=== PATIENT | female | born 1985 | race African-American/Black ===

== ENCOUNTER 2020-10-30 23:31 | Inpatient (IN) | payer OTHER ==
[2020-10-31 01:20] VITALS: BMI 25.4
[2020-10-31] MEDS ORDERED: MAG HYDROX/AL HYDROX/SIMETH 30 ML UNIT-DOSE CUP PO PRN (02:02)
[2020-10-31] MEDS ORDERED: chlordiazePOXIDE HCL 25 MG CAPSULE PO PRN (02:02)
[2020-10-31] MEDS ORDERED: NICOTINE POLACRILEX 4 MG GUM BUC PRN (02:02)
[2020-10-31] MEDS ORDERED: MAGNESIUM CITRATE 300 ML BOTTLE PO PRN (02:02)
[2020-10-31] MEDS ORDERED: ONDANSETRON *ODT* 4 MG TABLET SL PRN (02:02)
[2020-10-31] MEDS ORDERED: BISMUTH SUBSALICYLATE 524 MG/30 ML UD PO PRN (02:02)
[2020-10-31] MEDS ORDERED: MAGNESIUM HYDROX 2400MG/30ML ORAL SUSPENSION 30 ML CUP PO PRN (02:02)
[2020-10-31] MEDS ORDERED: ACETAMINOPHEN 325 MG TABLET (FP) PO PRN ×2 (02:02)
[2020-10-31] MEDS ORDERED: MENTHOL/PHENOL 1 EACH UD MM PRN (02:02)
[2020-10-31] MEDS: hydrOXYzine PAMOATE 25 MG CAPSULE (FP) PO SCH ×2 (06:38→09:40)
[2020-10-31] MEDS: chlordiazePOXIDE HCL 25 MG CAPSULE PO SCH ×4 (06:38→22:31)
[2020-10-31] MEDS: NICOTINE 21 MG/24 HOURS TOPICAL PATCH TD SCH (09:43)
[2020-10-31] MEDS: PRENATAL VITAMINS W/ FOLIC ACID TABLET (FP) PO SCH (09:43)
[2020-10-31] MEDS ORDERED: ALBUTEROL SO4 HFA INHALER IH PRN (11:34)
[2020-10-31 14:43] LABS: HEMATOCRIT 40.3 % (32.4-45.2); HEMOGLOBIN 13.5 GM/dL (10.7-15.3); MCH 31.8 pg (25.7-33.7); MCHC 33.5 g/dl (32.0-36.0); MEAN PLT VOLUME 9.1 fl (7.5-11.1); PLATELET COUNT 384 K/MM3 (134-434); RBC 4.24 M/mm3 (3.60-5.2); RDW 13.6 % (11.6-15.6); WHITE BLOOD COUNT 7.5 K/mm3 (4.0-10.0)
[2020-10-31 15:00] LABS: CALCIUM 8.9 mg/dL (8.5-10.1)
[2020-10-31 15:01] LABS: ALBUMIN 3.9 g/dl (3.4-5.0); BLOOD UREA NITROGEN 18.6 mg/dL (7-18)
[2020-10-31 15:04] LABS: CREATININE 0.8 mg/dL (0.55-1.3)
[2020-10-31 15:06] LABS: TOT PROT 7.2 g/dl (6.4-8.2)
[2020-10-31 15:07] LABS: BILIRUBIN,TOTAL 0.3 mg/dL (0.2-1)
[2020-10-31] MEDS: hydrOXYzine PAMOATE 25 MG CAPSULE (FP) PO PRN (17:32)
[2020-10-31] MEDS: METHOCARBAMOL 500 MG TABLET PO PRN (17:32)
[2020-10-31] MEDS: MELATONIN 5 MG TABLETS PO SCH (22:32)
[2020-10-31] MEDS: THIAMINE HCL 100 MG TABLET (FP) PO SCH (22:32)
[2020-11-01] MEDS: chlordiazePOXIDE HCL 25 MG CAPSULE PO SCH ×4 (05:45→22:29)
[2020-11-01] MEDS: NICOTINE 21 MG/24 HOURS TOPICAL PATCH TD SCH (10:18)
[2020-11-01] MEDS: PRENATAL VITAMINS W/ FOLIC ACID TABLET (FP) PO SCH (10:18)
[2020-11-01] MEDS: hydrOXYzine PAMOATE 25 MG CAPSULE (FP) PO PRN ×3 (10:19→22:31)
[2020-11-01] MEDS: METHOCARBAMOL 500 MG TABLET PO PRN (17:10)
[2020-11-01] MEDS: THIAMINE HCL 100 MG TABLET (FP) PO SCH (22:29)
[2020-11-01] MEDS: MELATONIN 5 MG TABLETS PO SCH (22:29)
[2020-11-02] MEDS ORDERED: chlordiazePOXIDE HCL 10 MG CAPSULE PO PRN
[2020-11-02] MEDS: chlordiazePOXIDE HCL 10 MG CAPSULE PO SCH ×4 (05:37→22:19)
[2020-11-02] MEDS: METHOCARBAMOL 500 MG TABLET PO PRN ×3 (05:38→23:44)
[2020-11-02] MEDS: PRENATAL VITAMINS W/ FOLIC ACID TABLET (FP) PO SCH (10:17)
[2020-11-02] MEDS: NICOTINE 21 MG/24 HOURS TOPICAL PATCH TD SCH (10:17)
[2020-11-02] MEDS: hydrOXYzine PAMOATE 25 MG CAPSULE (FP) PO PRN ×3 (10:17→22:19)
[2020-11-02] MEDS: THIAMINE HCL 100 MG TABLET (FP) PO SCH (22:18)
[2020-11-02] MEDS: MELATONIN 5 MG TABLETS PO SCH (22:18)
[2020-11-03] MEDS: chlordiazePOXIDE HCL 10 MG CAPSULE PO SCH ×2 (06:19→17:41)
[2020-11-03] MEDS: METHOCARBAMOL 500 MG TABLET PO PRN ×2 (06:21→21:56)
[2020-11-03] MEDS: IBUPROFEN 400 MG TABLET (FP) PO PRN ×2 (06:21→17:43)
[2020-11-03] MEDS: hydrOXYzine PAMOATE 25 MG CAPSULE (FP) PO PRN ×2 (09:35→21:55)
[2020-11-03] MEDS: PRENATAL VITAMINS W/ FOLIC ACID TABLET (FP) PO SCH (09:35)
[2020-11-03] MEDS: NICOTINE 21 MG/24 HOURS TOPICAL PATCH TD SCH (09:35)
[2020-11-03] MEDS: MELATONIN 5 MG TABLETS PO SCH (21:55)
[2020-11-03] MEDS: THIAMINE HCL 100 MG TABLET (FP) PO SCH (21:55)
[2020-11-04] MEDS ORDERED: chlordiazePOXIDE HCL 10 MG CAPSULE PO ONE (05:00)
[2020-11-04 06:06] LABS: SARS-CoV-2 NAA Not Detected (Not Detected)
[2020-11-04] MEDS: PRENATAL VITAMINS W/ FOLIC ACID TABLET (FP) PO SCH (09:37)
[2020-11-04] MEDS: NICOTINE 21 MG/24 HOURS TOPICAL PATCH TD SCH (09:37)
[2020-11-04 09:53] VITALS: BP 116/74; PULSE 105; TEMP 96.9
== END 2020-11-04 13:20 | disposition other institution (70) | DRG 774 ==
LOC: YASAS 23:31 → Y3N 10-31 01:58
PROVIDERS: ADMIT Allergy & Immunology; ATTEND Allergy & Immunology
PROC: HZ2ZZZZ Detoxification Services for Substance Abuse Treatment (ICD-10-PCS; principal; 2020-10-31)
DX: F10.230 Alcohol dependence with withdrawal, uncomplicated (principal); F14.20 Cocaine dependence, uncomplicated; F17.210 Nicotine dependence, cigarettes, uncomplicated; F19.24 Other psychoactive substance dependence with psychoactive substance-induced mood disorder; F41.8 Other specified anxiety disorders; F32.9 Major depressive disorder, single episode, unspecified; J45.909 Unspecified asthma, uncomplicated
CPT/HCPCS: 36415; 80053; 81025; 85027; 86780; C9803; U0003; U0005

== ENCOUNTER 2020-11-04 13:22 | Inpatient (IN) | payer OTHER ==
[2020-11-04] MEDS ORDERED: MAGNESIUM CITRATE 300 ML BOTTLE PO PRN (15:32)
[2020-11-04] MEDS ORDERED: P-EPHED 60MG/TRIPROLIDI 2.5MG TABLET PO PRN (15:32)
[2020-11-04] MEDS ORDERED: guaiFENesin 200 MG/10 ML 10 ML UNIT-DOSE CUPS PO PRN (15:32)
[2020-11-04] MEDS ORDERED: MENTHOL/PHENOL 1 EACH UD MM PRN (15:32)
[2020-11-04] MEDS ORDERED: MAGNESIUM HYDROX 2400MG/30ML ORAL SUSPENSION 30 ML CUP PO PRN (15:32)
[2020-11-04] MEDS ORDERED: LOPERAMIDE HCL 2 MG CAPSULE PO PRN (15:32)
[2020-11-04] MEDS ORDERED: MAG HYDROX/AL HYDROX/SIMETH 30 ML UNIT-DOSE CUP PO PRN (15:32)
[2020-11-04] MEDS ORDERED: ALBUTEROL SO4 HFA INHALER IH PRN (15:34)
[2020-11-04] MEDS: IBUPROFEN 400 MG TABLET (FP) PO PRN (21:17)
[2020-11-04] MEDS: MELATONIN 5 MG TABLETS PO SCH (21:18)
[2020-11-04] MEDS: THIAMINE HCL 100 MG TABLET (FP) PO SCH (21:18)
[2020-11-05] MEDS: IBUPROFEN 400 MG TABLET (FP) PO PRN ×2 (06:04→21:47)
[2020-11-05] MEDS: NICOTINE 21 MG/24 HOURS TOPICAL PATCH TD SCH (10:15)
[2020-11-05] MEDS: PRENATAL VITAMINS W/ FOLIC ACID TABLET (FP) PO SCH (10:15)
[2020-11-05 13:15] LABS: HIV INTERPRETATION NEGATIVE (NEGATIVE)
[2020-11-05] MEDS: THIAMINE HCL 100 MG TABLET (FP) PO SCH (21:46)
[2020-11-05] MEDS: MELATONIN 5 MG TABLETS PO SCH (21:46)
[2020-11-06] MEDS: NICOTINE 21 MG/24 HOURS TOPICAL PATCH TD SCH (10:01)
[2020-11-06] MEDS: PRENATAL VITAMINS W/ FOLIC ACID TABLET (FP) PO SCH (10:01)
[2020-11-06] MEDS: IBUPROFEN 400 MG TABLET (FP) PO PRN ×2 (10:01→22:12)
[2020-11-06] MEDS: hydrOXYzine PAMOATE 25 MG CAPSULE (FP) PO PRN (10:01)
[2020-11-06] MEDS: THIAMINE HCL 100 MG TABLET (FP) PO SCH (22:11)
[2020-11-06] MEDS: MELATONIN 5 MG TABLETS PO SCH (22:11)
[2020-11-06] MEDS: METHYL SALICYLATE/MENTHOL OINT 30 GM TUBE TP SCH (22:11)
[2020-11-07] MEDS: ACETAMINOPHEN 325 MG TABLET (FP) PO PRN (06:59)
[2020-11-07] MEDS: hydrOXYzine PAMOATE 25 MG CAPSULE (FP) PO PRN (10:41)
[2020-11-07] MEDS: NICOTINE 21 MG/24 HOURS TOPICAL PATCH TD SCH (10:41)
[2020-11-07] MEDS: PRENATAL VITAMINS W/ FOLIC ACID TABLET (FP) PO SCH (10:41)
[2020-11-07] MEDS: IBUPROFEN 400 MG TABLET (FP) PO PRN ×2 (10:42→18:18)
[2020-11-07] MEDS: METHYL SALICYLATE/MENTHOL OINT 30 GM TUBE TP SCH ×2 (10:43→21:19)
[2020-11-07] MEDS: QUEtiapine FUMARATE 100 MG TABLET (FP) PO SCH (21:18)
[2020-11-07] MEDS: traZODone HCL 50 MG TABLET (FP) PO SCH (21:18)
[2020-11-07] MEDS: THIAMINE HCL 100 MG TABLET (FP) PO SCH (21:19)
[2020-11-07] MEDS: NICOTINE POLACRILEX 2 MG GUM BUC PRN (21:19)
[2020-11-08] MEDS: ACETAMINOPHEN 325 MG TABLET (FP) PO PRN (07:51)
[2020-11-08 10:07] LABS: SARS-CoV-2 NAA Not Detected (Not Detected)
[2020-11-08] MEDS: NICOTINE POLACRILEX 2 MG GUM BUC PRN ×2 (10:33→22:01)
[2020-11-08] MEDS: METHYL SALICYLATE/MENTHOL OINT 30 GM TUBE TP SCH ×2 (10:33→22:00)
[2020-11-08] MEDS: PRENATAL VITAMINS W/ FOLIC ACID TABLET (FP) PO SCH (10:33)
[2020-11-08] MEDS: NICOTINE 21 MG/24 HOURS TOPICAL PATCH TD SCH (10:33)
[2020-11-08] MEDS: traZODone HCL 50 MG TABLET (FP) PO SCH (22:00)
[2020-11-08] MEDS: COLLOIDAL OATMEAL 1 BAR EACH TP PRN (22:00)
[2020-11-08] MEDS: QUEtiapine FUMARATE 100 MG TABLET (FP) PO SCH (22:00)
[2020-11-08] MEDS: THIAMINE HCL 100 MG TABLET (FP) PO SCH (22:00)
[2020-11-08] MEDS: hydrOXYzine PAMOATE 25 MG CAPSULE (FP) PO PRN (22:00)
[2020-11-08] MEDS: IBUPROFEN 400 MG TABLET (FP) PO PRN (22:56)
[2020-11-09] MEDS: PRENATAL VITAMINS W/ FOLIC ACID TABLET (FP) PO SCH (10:55)
[2020-11-09] MEDS: NICOTINE POLACRILEX 2 MG GUM BUC PRN (10:55)
[2020-11-09] MEDS: METHYL SALICYLATE/MENTHOL OINT 30 GM TUBE TP SCH ×2 (10:55→22:04)
[2020-11-09] MEDS: NICOTINE 21 MG/24 HOURS TOPICAL PATCH TD SCH (10:55)
[2020-11-09] MEDS: THIAMINE HCL 100 MG TABLET (FP) PO SCH (22:04)
[2020-11-09] MEDS: QUEtiapine FUMARATE 100 MG TABLET (FP) PO SCH (22:04)
[2020-11-09] MEDS: traZODone HCL 50 MG TABLET (FP) PO SCH (22:04)
[2020-11-10] MEDS: NICOTINE 21 MG/24 HOURS TOPICAL PATCH TD SCH (10:29)
[2020-11-10] MEDS: METHYL SALICYLATE/MENTHOL OINT 30 GM TUBE TP SCH ×2 (10:29→21:10)
[2020-11-10] MEDS: PRENATAL VITAMINS W/ FOLIC ACID TABLET (FP) PO SCH (10:29)
[2020-11-10] MEDS: TOLNAFTATE 1% CREAM 15 GM TUBE TP SCH ×2 (10:30→21:09)
[2020-11-10] MEDS: MINERAL OIL/PETROLAT/WATER TOPICAL CREAM 113 GM JAR TP SCH ×2 (11:04→21:09)
[2020-11-10] MEDS: QUEtiapine FUMARATE 100 MG TABLET (FP) PO SCH (21:09)
[2020-11-10] MEDS: traZODone HCL 50 MG TABLET (FP) PO SCH (21:09)
[2020-11-10] MEDS: THIAMINE HCL 100 MG TABLET (FP) PO SCH (21:09)
[2020-11-10] MEDS: hydrOXYzine PAMOATE 25 MG CAPSULE (FP) PO PRN (21:12)
[2020-11-11] MEDS: IBUPROFEN 400 MG TABLET (FP) PO PRN (07:04)
[2020-11-11] MEDS: METHYL SALICYLATE/MENTHOL OINT 30 GM TUBE TP SCH ×2 (10:06→22:08)
[2020-11-11] MEDS: MINERAL OIL/PETROLAT/WATER TOPICAL CREAM 113 GM JAR TP SCH ×2 (10:06→22:10)
[2020-11-11] MEDS: TOLNAFTATE 1% CREAM 15 GM TUBE TP SCH ×2 (10:06→22:10)
[2020-11-11] MEDS: NICOTINE 21 MG/24 HOURS TOPICAL PATCH TD SCH (10:06)
[2020-11-11] MEDS: PRENATAL VITAMINS W/ FOLIC ACID TABLET (FP) PO SCH (10:06)
[2020-11-11] MEDS: hydrOXYzine PAMOATE 25 MG CAPSULE (FP) PO PRN ×2 (10:07→22:08)
[2020-11-11] MEDS: ACETAMINOPHEN 325 MG TABLET (FP) PO PRN ×2 (10:07→19:02)
[2020-11-11] MEDS: THIAMINE HCL 100 MG TABLET (FP) PO SCH (22:08)
[2020-11-11] MEDS: QUEtiapine FUMARATE 100 MG TABLET (FP) PO SCH (22:08)
[2020-11-11] MEDS: traZODone HCL 50 MG TABLET (FP) PO SCH (22:08)
[2020-11-11] MEDS ORDERED: PT OWN MED DRAWER 7, Y5N ONE (22:11)
[2020-11-12] MEDS: PRENATAL VITAMINS W/ FOLIC ACID TABLET (FP) PO SCH (10:44)
[2020-11-12] MEDS: METHYL SALICYLATE/MENTHOL OINT 30 GM TUBE TP SCH ×2 (10:44→21:11)
[2020-11-12] MEDS: TOLNAFTATE 1% CREAM 15 GM TUBE TP SCH ×2 (10:44→21:10)
[2020-11-12] MEDS: NICOTINE 21 MG/24 HOURS TOPICAL PATCH TD SCH (10:44)
[2020-11-12] MEDS: MINERAL OIL/PETROLAT/WATER TOPICAL CREAM 113 GM JAR TP SCH ×2 (10:45→21:08)
[2020-11-12] MEDS: ACETAMINOPHEN 325 MG TABLET (FP) PO PRN (14:21)
[2020-11-12] MEDS ORDERED: PT OWN MED DRAWER 7, Y5N ONE (20:13)
[2020-11-12] MEDS: COLLOIDAL OATMEAL 1 BAR EACH TP PRN (21:11)
[2020-11-12] MEDS: traZODone HCL 50 MG TABLET (FP) PO SCH (21:11)
[2020-11-12] MEDS: THIAMINE HCL 100 MG TABLET (FP) PO SCH (21:11)
[2020-11-12] MEDS: QUEtiapine FUMARATE 100 MG TABLET (FP) PO SCH (21:11)
[2020-11-12] MEDS: hydrOXYzine PAMOATE 25 MG CAPSULE (FP) PO PRN (21:11)
[2020-11-13] MEDS: PRENATAL VITAMINS W/ FOLIC ACID TABLET (FP) PO SCH (10:34)
[2020-11-13] MEDS: IBUPROFEN 400 MG TABLET (FP) PO PRN ×2 (10:34→18:26)
[2020-11-13] MEDS: hydrOXYzine PAMOATE 25 MG CAPSULE (FP) PO PRN ×2 (10:35→21:57)
[2020-11-13] MEDS: TOLNAFTATE 1% CREAM 15 GM TUBE TP SCH ×2 (10:35→21:58)
[2020-11-13] MEDS: MINERAL OIL/PETROLAT/WATER TOPICAL CREAM 113 GM JAR TP SCH ×2 (10:36→21:58)
[2020-11-13] MEDS: NICOTINE 21 MG/24 HOURS TOPICAL PATCH TD SCH (10:37)
[2020-11-13] MEDS: METHYL SALICYLATE/MENTHOL OINT 30 GM TUBE TP SCH ×2 (10:37→21:57)
[2020-11-13] MEDS: QUEtiapine FUMARATE 100 MG TABLET (FP) PO SCH (21:57)
[2020-11-13] MEDS: traZODone HCL 50 MG TABLET (FP) PO SCH (21:57)
[2020-11-13] MEDS: THIAMINE HCL 100 MG TABLET (FP) PO SCH (21:57)
[2020-11-14] MEDS: ACETAMINOPHEN 325 MG TABLET (FP) PO PRN ×3 (00:44→21:15)
[2020-11-14] MEDS: IBUPROFEN 400 MG TABLET (FP) PO PRN (01:39)
[2020-11-14] MEDS ORDERED: ACETAMINOPHEN 325 MG TABLET (FP) PO PRN (09:29)
[2020-11-14] MEDS: METHYL SALICYLATE/MENTHOL OINT 30 GM TUBE TP SCH ×2 (09:32→21:13)
[2020-11-14] MEDS: PRENATAL VITAMINS W/ FOLIC ACID TABLET (FP) PO SCH (09:32)
[2020-11-14] MEDS: MINERAL OIL/PETROLAT/WATER TOPICAL CREAM 113 GM JAR TP SCH ×2 (09:32→21:14)
[2020-11-14] MEDS: NICOTINE 21 MG/24 HOURS TOPICAL PATCH TD SCH (09:33)
[2020-11-14] MEDS: TOLNAFTATE 1% CREAM 15 GM TUBE TP SCH ×2 (09:33→21:13)
[2020-11-14] MEDS: AMOXICILLIN 500 MG CAPSULE (FP) PO SCH ×2 (10:31→21:12)
[2020-11-14] MEDS ORDERED: PT OWN MED DRAWER 7, Y5N ONE (19:54)
[2020-11-14] MEDS: THIAMINE HCL 100 MG TABLET (FP) PO SCH (21:12)
[2020-11-14] MEDS: QUEtiapine FUMARATE 100 MG TABLET (FP) PO SCH (21:12)
[2020-11-14] MEDS: traZODone HCL 50 MG TABLET (FP) PO SCH (21:12)
[2020-11-15] MEDS: IBUPROFEN 400 MG TABLET (FP) PO PRN ×2 (06:21→19:06)
[2020-11-15] MEDS ORDERED: MASKS NR ONE (07:03)
[2020-11-15] MEDS ORDERED: PT OWN MED DRAWER 7, Y5N ONE ×3 (09:11→18:59)
[2020-11-15] MEDS: TOLNAFTATE 1% CREAM 15 GM TUBE TP SCH ×2 (09:34→21:44)
[2020-11-15] MEDS: AMOXICILLIN 500 MG CAPSULE (FP) PO SCH ×2 (09:34→21:44)
[2020-11-15] MEDS: MINERAL OIL/PETROLAT/WATER TOPICAL CREAM 113 GM JAR TP SCH ×2 (09:34→21:45)
[2020-11-15] MEDS: METHYL SALICYLATE/MENTHOL OINT 30 GM TUBE TP SCH ×2 (09:34→21:45)
[2020-11-15] MEDS: NICOTINE 21 MG/24 HOURS TOPICAL PATCH TD SCH (09:34)
[2020-11-15] MEDS: PRENATAL VITAMINS W/ FOLIC ACID TABLET (FP) PO SCH (09:34)
[2020-11-15] MEDS: ACETAMINOPHEN 325 MG TABLET (FP) PO PRN ×2 (09:37→16:51)
[2020-11-15] MEDS ORDERED: COVID-19 VAC,AD26(JANSSEN)/PF 0.5 ML IM ONE (10:00)
[2020-11-15] MEDS: BENZOCAINE 20 % GEL TUBE MM PRN (19:06)
[2020-11-15] MEDS: traZODone HCL 50 MG TABLET (FP) PO SCH (21:44)
[2020-11-15] MEDS: THIAMINE HCL 100 MG TABLET (FP) PO SCH (21:44)
[2020-11-15] MEDS: QUEtiapine FUMARATE 100 MG TABLET (FP) PO SCH (21:44)
[2020-11-16] MEDS: PRENATAL VITAMINS W/ FOLIC ACID TABLET (FP) PO SCH (09:13)
[2020-11-16] MEDS: AMOXICILLIN 500 MG CAPSULE (FP) PO SCH ×2 (09:13→21:10)
[2020-11-16] MEDS: IBUPROFEN 400 MG TABLET (FP) PO PRN ×2 (09:13→21:12)
[2020-11-16] MEDS: TOLNAFTATE 1% CREAM 15 GM TUBE TP SCH ×2 (09:14→21:10)
[2020-11-16] MEDS: METHYL SALICYLATE/MENTHOL OINT 30 GM TUBE TP SCH ×2 (09:14→21:10)
[2020-11-16] MEDS: NICOTINE 21 MG/24 HOURS TOPICAL PATCH TD SCH (09:14)
[2020-11-16] MEDS: MINERAL OIL/PETROLAT/WATER TOPICAL CREAM 113 GM JAR TP SCH ×2 (09:14→21:10)
[2020-11-16] MEDS: ACETAMINOPHEN 325 MG TABLET (FP) PO PRN (17:07)
[2020-11-16] MEDS ORDERED: PT OWN MED DRAWER 7, Y5N ONE ×2 (19:12→19:42)
[2020-11-16] MEDS: THIAMINE HCL 100 MG TABLET (FP) PO SCH (21:10)
[2020-11-16] MEDS: hydrOXYzine PAMOATE 25 MG CAPSULE (FP) PO PRN (21:10)
[2020-11-16] MEDS: QUEtiapine FUMARATE 100 MG TABLET (FP) PO SCH (21:10)
[2020-11-16] MEDS: traZODone HCL 50 MG TABLET (FP) PO SCH (21:12)
[2020-11-17] MEDS: IBUPROFEN 400 MG TABLET (FP) PO PRN (06:00)
[2020-11-17] MEDS: AMOXICILLIN 500 MG CAPSULE (FP) PO SCH ×2 (10:35→21:55)
[2020-11-17] MEDS: NICOTINE 21 MG/24 HOURS TOPICAL PATCH TD SCH (10:35)
[2020-11-17] MEDS: PRENATAL VITAMINS W/ FOLIC ACID TABLET (FP) PO SCH (10:35)
[2020-11-17] MEDS: BENZOCAINE 20 % GEL TUBE MM PRN (10:36)
[2020-11-17] MEDS: METHYL SALICYLATE/MENTHOL OINT 30 GM TUBE TP SCH ×2 (10:36→21:57)
[2020-11-17] MEDS: MINERAL OIL/PETROLAT/WATER TOPICAL CREAM 113 GM JAR TP SCH ×2 (10:36→22:00)
[2020-11-17] MEDS: TOLNAFTATE 1% CREAM 15 GM TUBE TP SCH ×2 (10:38→22:00)
[2020-11-17] MEDS: CHLORHEXIDINE GLUCONATE 118 ML MOUTHWASH MM SCH ×2 (12:28→21:56)
[2020-11-17] MEDS: MAG HYDROX/ALH/SMC/DPHA/LIDO 180 ML MOUTHWASH MM SCH ×2 (12:29→17:37)
[2020-11-17] MEDS: IBUPROFEN 600 MG TABLET (FP) PO PRN (16:47)
[2020-11-17] MEDS ORDERED: PT OWN MED DRAWER 7, Y5N ONE (17:35)
[2020-11-17] MEDS: traZODone HCL 50 MG TABLET (FP) PO SCH (21:56)
[2020-11-17] MEDS: QUEtiapine FUMARATE 100 MG TABLET (FP) PO SCH (21:56)
[2020-11-17] MEDS: THIAMINE HCL 100 MG TABLET (FP) PO SCH (21:56)
[2020-11-17] MEDS: hydrOXYzine PAMOATE 25 MG CAPSULE (FP) PO PRN (21:56)
[2020-11-18] MEDS: IBUPROFEN 600 MG TABLET (FP) PO PRN ×4 (00:02→14:46)
[2020-11-18] MEDS ORDERED: PT OWN MED DRAWER 7, Y5N ONE ×4 (00:04→21:05)
[2020-11-18] MEDS: MAG HYDROX/ALH/SMC/DPHA/LIDO 180 ML MOUTHWASH MM SCH ×4 (00:05→18:03)
[2020-11-18] MEDS: AMOXICILLIN 500 MG CAPSULE (FP) PO SCH ×2 (10:19→21:06)
[2020-11-18] MEDS: PRENATAL VITAMINS W/ FOLIC ACID TABLET (FP) PO SCH (10:20)
[2020-11-18] MEDS: METHYL SALICYLATE/MENTHOL OINT 30 GM TUBE TP SCH ×2 (10:21→21:07)
[2020-11-18] MEDS: NICOTINE 21 MG/24 HOURS TOPICAL PATCH TD SCH (10:21)
[2020-11-18] MEDS: CHLORHEXIDINE GLUCONATE 118 ML MOUTHWASH MM SCH ×2 (10:21→21:06)
[2020-11-18] MEDS: MINERAL OIL/PETROLAT/WATER TOPICAL CREAM 113 GM JAR TP SCH ×2 (10:21→21:06)
[2020-11-18] MEDS: TOLNAFTATE 1% CREAM 15 GM TUBE TP SCH ×2 (11:17→21:06)
[2020-11-18] MEDS: QUEtiapine FUMARATE 100 MG TABLET (FP) PO SCH (21:06)
[2020-11-18] MEDS: THIAMINE HCL 100 MG TABLET (FP) PO SCH (21:06)
[2020-11-18] MEDS: traZODone HCL 50 MG TABLET (FP) PO SCH (21:06)
[2020-11-19] MEDS: MAG HYDROX/ALH/SMC/DPHA/LIDO 180 ML MOUTHWASH MM SCH ×4 (00:32→18:00)
[2020-11-19] MEDS: IBUPROFEN 600 MG TABLET (FP) PO PRN ×2 (06:43→17:55)
[2020-11-19] MEDS: PRENATAL VITAMINS W/ FOLIC ACID TABLET (FP) PO SCH (10:30)
[2020-11-19] MEDS: NICOTINE 21 MG/24 HOURS TOPICAL PATCH TD SCH (10:30)
[2020-11-19] MEDS: METHYL SALICYLATE/MENTHOL OINT 30 GM TUBE TP SCH ×2 (10:31→22:04)
[2020-11-19] MEDS: AMOXICILLIN 500 MG CAPSULE (FP) PO SCH ×2 (10:31→22:04)
[2020-11-19] MEDS: TOLNAFTATE 1% CREAM 15 GM TUBE TP SCH ×2 (10:32→22:04)
[2020-11-19] MEDS: MINERAL OIL/PETROLAT/WATER TOPICAL CREAM 113 GM JAR TP SCH ×2 (10:32→22:04)
[2020-11-19] MEDS: CHLORHEXIDINE GLUCONATE 118 ML MOUTHWASH MM SCH ×2 (10:32→22:04)
[2020-11-19] MEDS ORDERED: PT OWN MED DRAWER 7, Y5N ONE ×2 (17:55→22:03)
[2020-11-19] MEDS: THIAMINE HCL 100 MG TABLET (FP) PO SCH (22:04)
[2020-11-19] MEDS: traZODone HCL 50 MG TABLET (FP) PO SCH (22:04)
[2020-11-19] MEDS: QUEtiapine FUMARATE 100 MG TABLET (FP) PO SCH (22:04)
[2020-11-20] MEDS: MAG HYDROX/ALH/SMC/DPHA/LIDO 180 ML MOUTHWASH MM SCH ×4 (01:11→19:29)
[2020-11-20] MEDS: PRENATAL VITAMINS W/ FOLIC ACID TABLET (FP) PO SCH (10:31)
[2020-11-20] MEDS: METHYL SALICYLATE/MENTHOL OINT 30 GM TUBE TP SCH ×2 (10:32→21:09)
[2020-11-20] MEDS: MINERAL OIL/PETROLAT/WATER TOPICAL CREAM 113 GM JAR TP SCH ×2 (10:32→21:09)
[2020-11-20] MEDS: CHLORHEXIDINE GLUCONATE 118 ML MOUTHWASH MM SCH ×2 (10:32→21:09)
[2020-11-20] MEDS: AMOXICILLIN 500 MG CAPSULE (FP) PO SCH ×2 (10:32→21:09)
[2020-11-20] MEDS: TOLNAFTATE 1% CREAM 15 GM TUBE TP SCH ×2 (10:33→21:10)
[2020-11-20] MEDS: IBUPROFEN 600 MG TABLET (FP) PO PRN (10:33)
[2020-11-20] MEDS: NICOTINE 21 MG/24 HOURS TOPICAL PATCH TD SCH (10:33)
[2020-11-20] MEDS: hydrOXYzine PAMOATE 25 MG CAPSULE (FP) PO PRN (21:09)
[2020-11-20] MEDS: THIAMINE HCL 100 MG TABLET (FP) PO SCH (21:09)
[2020-11-20] MEDS: QUEtiapine FUMARATE 100 MG TABLET (FP) PO SCH (21:09)
[2020-11-20] MEDS: traZODone HCL 50 MG TABLET (FP) PO SCH (21:09)
[2020-11-20] MEDS ORDERED: PT OWN MED DRAWER 7, Y5N ONE (21:11)
[2020-11-21] MEDS: MAG HYDROX/ALH/SMC/DPHA/LIDO 180 ML MOUTHWASH MM SCH ×4 (00:59→17:43)
[2020-11-21] MEDS: IBUPROFEN 600 MG TABLET (FP) PO PRN ×3 (03:19→22:10)
[2020-11-21] MEDS: PRENATAL VITAMINS W/ FOLIC ACID TABLET (FP) PO SCH (10:36)
[2020-11-21] MEDS: MINERAL OIL/PETROLAT/WATER TOPICAL CREAM 113 GM JAR TP SCH ×2 (11:01→22:09)
[2020-11-21] MEDS: NICOTINE 21 MG/24 HOURS TOPICAL PATCH TD SCH (11:01)
[2020-11-21] MEDS: TOLNAFTATE 1% CREAM 15 GM TUBE TP SCH ×2 (11:01→22:09)
[2020-11-21] MEDS: CHLORHEXIDINE GLUCONATE 118 ML MOUTHWASH MM SCH ×2 (11:01→22:08)
[2020-11-21] MEDS: METHYL SALICYLATE/MENTHOL OINT 30 GM TUBE TP SCH ×2 (11:01→22:08)
[2020-11-21] MEDS: THIAMINE HCL 100 MG TABLET (FP) PO SCH (22:08)
[2020-11-21] MEDS: QUEtiapine FUMARATE 100 MG TABLET (FP) PO SCH (22:08)
[2020-11-21] MEDS: traZODone HCL 50 MG TABLET (FP) PO SCH (22:08)
[2020-11-22] MEDS: MAG HYDROX/ALH/SMC/DPHA/LIDO 180 ML MOUTHWASH MM SCH ×2 (00:55→07:03)
[2020-11-22 07:12] VITALS: BP 111/73; PULSE 92; TEMP 97.1
[2020-11-22] MEDS: IBUPROFEN 600 MG TABLET (FP) PO PRN (07:41)
== END 2020-11-22 08:35 | disposition home or self-care (01) | DRG 772 ==
LOC: YASAS 13:22 → Y5N 13:23
PROVIDERS: ADMIT Allergy & Immunology; ATTEND Allergy & Immunology
PROC: HZ42ZZZ Group Counseling for Substance Abuse Treatment, Cognitive-Behavioral (ICD-10-PCS; principal; 2020-11-04)
DX: F10.20 Alcohol dependence, uncomplicated (principal); F14.20 Cocaine dependence, uncomplicated; F17.210 Nicotine dependence, cigarettes, uncomplicated; F20.9 Schizophrenia, unspecified; F31.9 Bipolar disorder, unspecified; F19.24 Other psychoactive substance dependence with psychoactive substance-induced mood disorder; G47.00 Insomnia, unspecified; J35.1 Hypertrophy of tonsils; K02.9 Dental caries, unspecified; L85.3 Xerosis cutis; M25.512 Pain in left shoulder; B35.3 Tinea pedis; Z56.0 Unemployment, unspecified; Z59.0 Homelessness
CPT/HCPCS: 0031A; 36415; 87070; 87389; 91303; C9803; U0003; U0005

== ENCOUNTER 2024-07-29 22:12 | Inpatient (IN) | payer OTHER ==
[2024-07-29 22:39] VITALS: BMI 26.7
[2024-07-29] MEDS ORDERED: MAGNESIUM HYDROX 2400MG/30ML ORAL SUSPENSION 30 ML CUP PO PRN (23:25)
[2024-07-29] MEDS ORDERED: ONDANSETRON *ODT* 4 MG TABLET SL PRN (23:25)
[2024-07-29] MEDS ORDERED: NICOTINE POLACRILEX 2 MG GUM BUC PRN (23:25)
[2024-07-29] MEDS ORDERED: IBUPROFEN 400 MG TABLET (FP) PO PRN (23:25)
[2024-07-29] MEDS ORDERED: LOPERAMIDE HCL 2 MG CAPSULE PO PRN (23:25)
[2024-07-29] MEDS ORDERED: BISMUTH SUBSALICYLATE 524 MG/30 ML PO PRN (23:25)
[2024-07-29] MEDS ORDERED: MAG HYDROX/AL HYDROX/SIMETH 30 ML UNIT-DOSE CUP PO PRN (23:25)
[2024-07-29] MEDS ORDERED: POLYETHYLENE GLYCOL (HEALTHYLAX) 3350 17 GM PACKET PO PRN (23:25)
[2024-07-29] MEDS ORDERED: BENZONATATE 200 MG CAPSULE PO PRN (23:25)
[2024-07-29] MEDS ORDERED: NICOTINE POLACRILEX 2 MG LOZENGE BC PRN (23:25)
[2024-07-29] MEDS ORDERED: DICYCLOMINE HCL 10 MG CAPSULE PO PRN (23:25)
[2024-07-29] MEDS ORDERED: NALOXONE (NARCAN) HCL 4 MG/0.1 ML SPRAY NS PRN (23:25)
[2024-07-30] MEDS ORDERED: IBUPROFEN 600 MG TABLET (FP) PO ONE (00:46)
[2024-07-30] MEDS ORDERED: hydrOXYzine PAMOATE 25 MG CAPSULE (FP) PO ONE (00:46)
[2024-07-30] MEDS: IBUPROFEN 600 MG TABLET (FP) PO PRN (00:59)
[2024-07-30] MEDS: hydrOXYzine PAMOATE 25 MG CAPSULE (FP) PO PRN (00:59)
[2024-07-30] MEDS: METHOCARBAMOL 500 MG TABLET PO PRN (05:54)
[2024-07-30] MEDS ORDERED: ALBUTEROL SO4 HFA INHALER IH PRN (08:00)
[2024-07-30] MEDS ORDERED: diazePAM 5 MG TABLET PO PRN (08:41)
[2024-07-30] MEDS: diazePAM 5 MG TABLET PO SCH (10:20)
[2024-07-30] MEDS: PRENATAL VITAMINS W/ FOLIC ACID TABLET (FP) PO SCH (10:20)
[2024-07-30] MEDS: OLANZapine 2.5 MG TABLET PO SCH (10:41)
[2024-07-30 11:46] LABS: HEMATOCRIT 38.5 % (32.4-45.2); MCH 31.4 pg (25.7-33.7); MCHC 33.7 g/dl (32.0-36.0); MEAN CELL VOLUME 93.2 fl (80-96); MEAN PLT VOLUME 8.9 fl (7.5-11.1); PLATELET COUNT 423 10^3/uL (134-434); RBC 4.13 M/mm3 (3.60-5.2); WHITE BLOOD COUNT 13.6 K/mm3 (4.0-10.0)
[2024-07-30 13:17] LABS: HIV INTERPRETATION NEGATIVE (NEGATIVE)
[2024-07-30 13:25] LABS: CHLORIDE 104 mmol/L (98-107); POTASSIUM 4.4 mmol/L (3.5-5.1); SODIUM 138 mmol/L (136-145)
[2024-07-30 13:27] LABS: CALCIUM 8.8 mg/dL (8.5-10.1)
[2024-07-30 13:28] LABS: ALBUMIN 3.7 g/dl (3.4-5.0); ANION GAP 7 mmol/L (4-13); CO2 27 mmol/L (21-32); GLUCOSE,RANDOM 109 mg/dL (74-106)
[2024-07-30 13:29] LABS: BLOOD UREA NITROGEN 18.2 mg/dL (7-18)
[2024-07-30 13:31] LABS: CREATININE 0.7 mg/dL (0.55-1.3); SGOT/AST 14 U/L (15-37); SGPT/ALT 28 U/L (13-61)
[2024-07-30 13:32] LABS: BILIRUBIN,TOTAL 0.3 mg/dL (0.2-1); TOT PROT 7.1 g/dl (6.4-8.2)
[2024-07-30 13:33] LABS: ALK PHOS 143 U/L (45-117)
[2024-07-30] MEDS: MELATONIN 5 MG TABLETS PO SCH (22:35)
[2024-07-30] MEDS: OLANZapine 5 MG TABLET PO SCH (22:35)
[2024-07-30] MEDS: THIAMINE 100 MG TABLET PO SCH (22:35)
[2024-07-30] MEDS: guaiFENesin 600 MG TABLET.ER (FP) PO PRN (22:37)
[2024-08-01] MEDS: diazePAM 5 MG TABLET PO SCH (06:04)
[2024-08-01] MEDS: ACETAMINOPHEN 325 MG TABLET (FP) PO PRN (06:06)
[2024-08-01] MEDS: BENZOCAINE/MENTHOL (CHLORASEPTIC ) LOZENGE MM PRN (06:09)
[2024-08-01] MEDS: guaiFENesin 600 MG TABLET.ER (FP) PO PRN (22:44)
[2024-08-02] MEDS: diazePAM 5 MG TABLET PO SCH (06:12)
[2024-08-02 08:28] LABS: BASO % 0.3 % (0-2.0); HEMATOCRIT 38.3 % (32.4-45.2); HEMOGLOBIN 12.5 GM/dL (10.7-15.3); LYMPH % 18.1 % (8-40); MCH 30.7 pg (25.7-33.7); MCHC 32.7 g/dl (32.0-36.0); MEAN CELL VOLUME 94.1 fl (80-96); MONO % 10.3 % (3.8-10.2); NEUT % 69.3 % (42.8-82.8); PLATELET COUNT 383 10^3/uL (134-434); RBC 4.07 M/mm3 (3.60-5.2); RDW 15.1 % (11.6-15.6); WHITE BLOOD COUNT 12.4 K/mm3 (4.0-10.0)
[2024-08-03] MEDS: diazePAM 5 MG TABLET PO ONE (05:58)
[2024-08-03 13:19] VITALS: BP 116/80; PULSE 100; RESP 16; TEMP 97.8
== END 2024-08-03 14:09 | disposition other institution (70) | DRG 774 ==
LOC: YASAS 22:12 → Y3N 07-30 02:43
PROVIDERS: ADMIT Allergy & Immunology; ATTEND Allergy & Immunology
PROC: HZ2ZZZZ Detoxification Services for Substance Abuse Treatment (ICD-10-PCS; principal; 2024-07-30)
DX: F10.230 Alcohol dependence with withdrawal, uncomplicated (principal); F14.20 Cocaine dependence, uncomplicated; F17.210 Nicotine dependence, cigarettes, uncomplicated; J45.909 Unspecified asthma, uncomplicated; Z20.828 Contact with and (suspected) exposure to other viral communicable diseases; Z62.810 Personal history of physical and sexual abuse in childhood; Z63.8 Other specified problems related to primary support group; Z56.0 Unemployment, unspecified; Z59.00 Homelessness unspecified
CPT/HCPCS: 0241U-QW; 36415; 71046-TC-FY; 80053; 80305; 80307; 81025; 85025; 85027; 86780; 87086; 87186; 87389; 87811; 93005; 93010

== ENCOUNTER 2024-08-03 14:19 | Inpatient (IN) | payer OTHER ==
[2024-08-03] MEDS ORDERED: POLYETHYLENE GLYCOL (HEALTHYLAX) 3350 17 GM PACKET PO PRN (15:50)
[2024-08-03] MEDS ORDERED: BENZONATATE 200 MG CAPSULE PO PRN (15:50)
[2024-08-03] MEDS ORDERED: BENZOCAINE/MENTHOL (CHLORASEPTIC ) LOZENGE MM PRN (15:50)
[2024-08-03] MEDS ORDERED: IBUPROFEN 400 MG TABLET (FP) PO PRN (15:50)
[2024-08-03] MEDS ORDERED: MAGNESIUM HYDROX 2400MG/30ML ORAL SUSPENSION 30 ML CUP PO PRN (15:50)
[2024-08-03] MEDS ORDERED: LOPERAMIDE HCL 2 MG CAPSULE PO PRN (15:50)
[2024-08-03] MEDS ORDERED: NICOTINE POLACRILEX 4 MG LOZENGE BC PRN (15:50)
[2024-08-03] MEDS ORDERED: NALOXONE (NARCAN) HCL 4 MG/0.1 ML SPRAY NS PRN (15:50)
[2024-08-03] MEDS ORDERED: NICOTINE POLACRILEX 4 MG GUM BUC PRN (15:50)
[2024-08-03] MEDS ORDERED: NALOXONE HCL 0.4 MG/ML VIAL IVPUSH PRN (15:50)
[2024-08-03] MEDS ORDERED: ALBUTEROL SO4 HFA INHALER IH PRN (15:51)
[2024-08-03] MEDS: LIDOCAINE 5% TOPICAL PATCH TP SCH (16:47)
[2024-08-03] MEDS: METHOCARBAMOL 500 MG TABLET PO PRN (21:17)
[2024-08-03] MEDS: THIAMINE 100 MG TABLET PO SCH (21:17)
[2024-08-03] MEDS: OLANZapine 5 MG TABLET PO SCH (21:18)
[2024-08-03] MEDS: MELATONIN 5 MG TABLETS PO SCH (21:18)
[2024-08-03] MEDS: LIDOCAINE PATCH REMOVAL MC SCH (21:18)
[2024-08-04] MEDS: PRENATAL VITAMINS W/ FOLIC ACID TABLET (FP) PO SCH (09:58)
[2024-08-04] MEDS: NICOTINE 21 MG/24 HOURS TOPICAL PATCH TD SCH (09:58)
[2024-08-04] MEDS: OLANZapine 2.5 MG TABLET PO SCH (10:00)
[2024-08-04] MEDS: IBUPROFEN 600 MG TABLET (FP) PO PRN (10:01)
[2024-08-04 15:03] LABS: INR 0.88 (0.83-1.09); PROTHROMBIN TIME (PATIENT) 9.7 SEC (9.7-13.0)
[2024-08-04] MEDS: MAG HYDROX/AL HYDROX/SIMETH 30 ML UNIT-DOSE CUP PO PRN (21:22)
[2024-08-05] MEDS: guaiFENesin 600 MG TABLET.ER (FP) PO PRN (06:26)
[2024-08-06] MEDS: ACETAMINOPHEN 325 MG TABLET (FP) PO PRN (21:21)
[2024-08-08] MEDS: hydrOXYzine PAMOATE 25 MG CAPSULE (FP) PO PRN (21:31)
[2024-08-09] MEDS: SULFAMETHOXAZOLE/TRIMETHOPRIM 800MG/160MG D.S. TABLET PO SCH (21:14)
[2024-08-09] MEDS: BACLOFEN 10 MG TABLET (FP) PO SCH (21:15)
[2024-08-10 00:38] LABS: URINE APPEARANCE CLEAR; URINE BILIRUBIN NEGATIVE (NEGATIVE); URINE COLOR YELLOW; URINE GLUCOSE (UA) NEGATIVE (NEGATIVE); URINE KETONE NEGATIVE (NEGATIVE)
[2024-08-10 00:39] LABS: URINE LEUK ESTERASE NEGATIVE (NEGATIVE); URINE NITRITE NEGATIVE (NEGATIVE); URINE PROTEIN NEGATIVE (NEGATIVE); URINE UROBILINOGEN 0.2 mg/dL (0.2-1.0)
[2024-08-10] MEDS: NALTREXONE HCL 50 MG TABLET PO ONE (09:50)
[2024-08-10] MEDS: traZODone HCL 50 MG TABLET (FP) PO SCH (22:28)
[2024-08-11] MEDS: NALTREXONE HCL 50 MG TABLET PO SCH (12:02)
[2024-08-11 15:25] VITALS: BMI 29.5
[2024-08-18] MEDS: LIDOCAINE PATCH REMOVAL MC SCH (21:08)
[2024-08-18] MEDS: traZODone HCL 100 MG TABLET (FP) PO SCH (21:08)
[2024-08-19] MEDS: LIDOCAINE 5% TOPICAL PATCH TP SCH (14:22)
[2024-08-19] MEDS: METHYL SALICYLATE/MENTHOL 30 GM TUBE TP PRN (21:25)
[2024-08-19] MEDS: LIDOCAINE PATCH REMOVAL MC SCH (21:25)
[2024-08-21] MEDS: PSEUDOEPHEDRINE HCL 30 MG TABLET PO SCH (07:26)
[2024-08-24 06:53] VITALS: BP 106/70; PULSE 64; RESP 18; TEMP 97.4
== END 2024-08-24 10:05 | disposition home or self-care (01) | DRG 772 ==
LOC: YASAS 14:19 → Y5N 14:21 → Y3NR 08-10 10:43 → Y5N 08-12 15:05
PROVIDERS: ADMIT Psychiatry & Neurology Pain Medicine; ATTEND Psychiatry & Neurology Pain Medicine
PROC: HZ42ZZZ Group Counseling for Substance Abuse Treatment, Cognitive-Behavioral (ICD-10-PCS; principal; 2024-08-03)
DX: F10.20 Alcohol dependence, uncomplicated (principal); F14.20 Cocaine dependence, uncomplicated; F17.210 Nicotine dependence, cigarettes, uncomplicated; F20.9 Schizophrenia, unspecified; F19.24 Other psychoactive substance dependence with psychoactive substance-induced mood disorder; G47.00 Insomnia, unspecified; J45.909 Unspecified asthma, uncomplicated; M25.511 Pain in right shoulder; M54.50 Low back pain, unspecified; G89.29 Other chronic pain; N39.0 Urinary tract infection, site not specified; R73.03 Prediabetes; Z56.0 Unemployment, unspecified; Z59.00 Homelessness unspecified
CPT/HCPCS: 36415; 81003; 82140; 82652; 82962; 83735; 85610; 87086; 87491; 87591; 87661; 87811; J0475